=== PATIENT | male | born 1965 | race Caucasian/White ===

== ENCOUNTER 2018-11-05 15:43 | Emergency (ER) | payer BC ==
[~2018-11-05] VITALS: Ht 170.2 cm; Wt 81.8 kg
[2018-11-05 16:04] VITALS: BP 124/71; TEMP 97.9
[2018-11-05] MEDS ORDERED: NORCO 325 MG-51 TAB PO (19:27)
[2018-11-05 19:51] VITALS: PULSE 82
== END 2018-11-05 19:55 | disposition home or self-care (01) ==
LOC: COL.ER 15:43
DX: S52.91XA Unspecified fracture of right forearm, initial encounter for closed fracture (principal); W22.8XXA Striking against or struck by other objects, initial encounter; Y92.59 Other trade areas as the place of occurrence of the external cause
CPT/HCPCS: Q4021